=== PATIENT | male | born 1970 | race Two or more races ===

== ENCOUNTER 2017-11-20 02:20 | Inpatient (IN) | payer OTHER ==
[~2017-11-20] VITALS: Ht 193 cm; Wt 90.7 kg
[2017-11-20] MEDS ORDERED: LANTUS SOL100 UNIT/1 (02:29)
[2017-11-23] MEDS ORDERED: Lantus 1000 UNITS/10 SUBCUTANEO (16:33)
[2017-11-23] MEDS ORDERED: LIPITOR40 MG PO (16:33)
[2017-11-23] MEDS ORDERED: POTASSIUM20 MEQ/15 PO (16:33)
[2017-11-23] MEDS ORDERED: HumaLOG 100 UNIT/1 M SUBCUTANEO (16:33)
== END 2017-11-23 17:12 | disposition home or self-care (01) | DRG 639 ==
LOC: ER 02:20 → SURH 18:17 → ICU-2 18:17 → SURH 11-23 15:45
PROC: 4A033R1 Measurement of Arterial Saturation, Peripheral, Percutaneous Approach (ICD-10-PCS; principal; 2017-11-20)
DX: E10.10 Type 1 diabetes mellitus with ketoacidosis without coma (principal); Z79.4 Long term (current) use of insulin; E86.0 Dehydration; F17.210 Nicotine dependence, cigarettes, uncomplicated; E78.4 Other hyperlipidemia